=== PATIENT | female | born 1975 | race Caucasian/White ===

== ENCOUNTER → 2016-09-07 | Outpatient (CLI) | payer OTHER ==
[~2016-09-07] MED LIST: AMITRIPTYLINE H25 M1 PO; ATARAX 25MG25 MG/TAB PO; ATIVAN 0.50.5 MG/TAB PO; BENADRYL50 MG; BUSPAR DIVIDOSE15 MG PO; COLACE 100100 MG/CAP PO; FOLIC ACID 11 MG/TA1 PO; GLUCOPHAGE500 MG/TAB PO; NEXIUM 40MG40 MG PO; PERCOCET 325 MG1 TA2 PO; PREDNISONE 5MG5 MG PO; PREDNISONE20 MG PO; PRENATAL1 TA1 PO; PROBIOTIC FORMU1 CAP PO; REQUIP 1MG T1 MG/TAB PO; TOPAMAX 25MG25 M1 PO; TRINESSA 281 TAB PO; VITAMIN B1100 MCG/ML IM; VITAMIN D 50,1.25 MG PO; WELLBUTRIN 75MG75 MG PO; ZANTAC 7575 MG PO; ZYRTEC 10MG10 MG PO; [UNRECOGNIZED DRUG - OTHER]
== END ==
LOC: BHSO 15:15
DX: F41.0 Panic disorder [episodic paroxysmal anxiety] (principal)

== ENCOUNTER → 2016-09-21 | Outpatient (CLI) | payer OTHER | LOC: BHSO 15:12 | DX: F90.0 Attention-deficit hyperactivity disorder, predominantly inattentive type (principal) ==

== ENCOUNTER → 2016-10-19 | Outpatient (CLI) | payer OTHER | LOC: BHSO 15:09 | DX: F90.0 Attention-deficit hyperactivity disorder, predominantly inattentive type (principal) ==

== ENCOUNTER → 2016-12-21 | Outpatient (CLI) | payer OTHER | LOC: BHSO 15:04 | DX: F90.0 Attention-deficit hyperactivity disorder, predominantly inattentive type (principal) ==

== ENCOUNTER → 2017-02-01 | Outpatient (CLI) | payer BC, OTHER | LOC: BHSO 15:05 | DX: F90.0 Attention-deficit hyperactivity disorder, predominantly inattentive type (principal) ==

== ENCOUNTER → 2017-04-16 | Outpatient (CLI) | payer OTHER | LOC: BHSO 11:12 | DX: F06.32 Mood disorder due to known physiological condition with major depressive-like episode (principal) ==

== ENCOUNTER → 2017-05-21 | Outpatient (CLI) | payer OTHER | LOC: BHSO 11:23 | DX: F90.0 Attention-deficit hyperactivity disorder, predominantly inattentive type (principal) ==

== ENCOUNTER → 2017-07-16 | Outpatient (CLI) | payer OTHER | LOC: BHSO 11:07 | DX: F90.0 Attention-deficit hyperactivity disorder, predominantly inattentive type (principal) ==

== ENCOUNTER → 2017-08-24 | Outpatient (CLI) | payer BC, OTHER | LOC: BHSO 07:59 | DX: F90.0 Attention-deficit hyperactivity disorder, predominantly inattentive type (principal) | CPT/HCPCS: G0463 ==

== ENCOUNTER → 2017-10-15 | Outpatient (CLI) | payer BC, OTHER ==
[~2017-10-15] MED LIST changes: +ADDERALL20 MG PO; +CYMBALTA 60MG60 MG PO; +IMITREX100 MG PO; +LYRICA 150MG C150 MG PO; +ZANAFLEX2 MG PO
== END ==
LOC: BHSO 14:29
DX: F90.0 Attention-deficit hyperactivity disorder, predominantly inattentive type (principal)
CPT/HCPCS: G0463

== ENCOUNTER → 2017-10-18 | Outpatient (CLI) | payer BC, OTHER ==
[~2017-10-18] VITALS: Ht 162.6 cm; Wt 118.4 kg
[2017-10-18 13:31] VITALS: BP 126/84; PULSE 84
== END ==
LOC: LIGHT 07-26 08:50
DX: Z98.84 Bariatric surgery status (principal); K21.9 Gastro-esophageal reflux disease without esophagitis; M79.7 Fibromyalgia; Z68.41 Body mass index [BMI] 40.0-44.9, adult; Z71.3 Dietary counseling and surveillance
CPT/HCPCS: G0463

== ENCOUNTER → 2017-12-17 | Outpatient (CLI) | payer BC, OTHER | LOC: BHSO 14:18 | DX: F90.0 Attention-deficit hyperactivity disorder, predominantly inattentive type (principal) | CPT/HCPCS: G0463 ==

== ENCOUNTER → 2018-03-18 | Outpatient (CLI) | payer BC, OTHER | LOC: BHSO 15:18 | DX: F90.0 Attention-deficit hyperactivity disorder, predominantly inattentive type (principal) | CPT/HCPCS: G0463 ==

== ENCOUNTER → 2018-08-26 | Outpatient (CLI) | payer OTHER ==
[~2018-08-26] MED LIST changes: +DEXMETHYLPHENID10 MG PO; +SINGULAIR 110 MG/TAB PO; +TROKEND50 PO; +WELLBUTRIN XL150 MG PO; +ZOFRAN8 MG PO
== END ==
LOC: COL.RAD 07:08
DX: N84.0 Polyp of corpus uteri (principal)

== ENCOUNTER 2018-09-05 14:18 | Day surgery (SDC) | payer OTHER ==
[~2018-09-05] VITALS: Ht 165.1 cm; Wt 138.6 kg
[2018-09-05] MEDS ORDERED: LOMOTIL 0.025 M1 TAB PO (14:47)
[2018-09-05] MEDS ORDERED: DESYREL 50MG50 MG PO (14:50)
[2018-09-05] MEDS ORDERED: VYVANSE20 MG PO (14:51)
[2018-09-05] MEDS ORDERED: LYRICA 75MG CAP75 MG PO (14:51)
[2018-09-05 14:52] VITALS: BP 139/95; PULSE 74; TEMP 97.6
[2018-09-05] MEDS ORDERED: IMITREX100 MG PO (14:52)
[2018-09-05 16:40] VITALS: BP 136/72; PULSE 76; TEMP 97.5
--- NOTE | 2018-09-05 16:40 | NUR ---
TO BAY 5 PER CART FROM ENDOSCOPY. AMBULATED TO RECLINER WITH 2 ASSIST AND TOLERATED WELL. ALERT ORIENTED X3, TALKING TO STAFF AND HER . DENIES PAIN OR DISCOMFORT RECEIVED WATER AND TOLERATED WELL
[2018-09-05 16:55] VITALS: BP 140/71; PULSE 76
--- NOTE | 2018-09-05 16:55 | NUR ---
DR SALCEDO INTO TALK WITH PATIENT AND HER . TOLERATING WATER WELL.
[2018-09-05 17:10] VITALS: BP 115/75; PULSE 71
--- NOTE | 2018-09-05 17:15 | NUR ---
DISCHARGED PER WC BY NURSING STAFF TO PRIVATE CAR IN CARE OF - NOMI.
--- NOTE | 2018-09-05 17:28 | NUR ---
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 RECEIVED DISCHARGE INSTRUCTIONS AND VERBALIZED UNDERSTANDING. DISCONTINUED IV AND INT- CATHETER INTACT
[2018-09-05 20:01] VITALS: BP 109/55; PULSE 84
== END 2018-09-05 17:32 | disposition home or self-care (01) ==
LOC: SDCO 14:18
DX: K21.9 Gastro-esophageal reflux disease without esophagitis (principal); K31.89 Other diseases of stomach and duodenum; Z88.1 Allergy status to other antibiotic agents; Z88.6 Allergy status to analgesic agent; Z88.8 Allergy status to other drugs, medicaments and biological substances; D50.9 Iron deficiency anemia, unspecified; J45.909 Unspecified asthma, uncomplicated; K59.00 Constipation, unspecified; F32.9 Major depressive disorder, single episode, unspecified
CPT/HCPCS: C1726; J2250; J2405; J3010; J7030

== ENCOUNTER → 2018-09-16 | Outpatient (CLI) | payer OTHER ==
[~2018-09-16] MED LIST changes: +DESYREL 50MG50 MG PO; +LOMOTIL 0.025 M1 TAB PO; +LYRICA 75MG CAP75 MG PO; +VYVANSE20 MG PO
== END ==
LOC: BHSO 15:45
DX: F90.0 Attention-deficit hyperactivity disorder, predominantly inattentive type (principal)
CPT/HCPCS: G0463

== ENCOUNTER → 2018-10-19 | Outpatient (CLI) | payer OTHER | LOC: BHSO 13:14 | DX: F90.0 Attention-deficit hyperactivity disorder, predominantly inattentive type (principal) | CPT/HCPCS: G0463 ==